=== PATIENT | male | born 1970 | race Caucasian/White ===

== ENCOUNTER 2017-10-17 17:26 | Emergency (ER) | payer OTHER ==
[2017-10-17 17:39] VITALS: RESP 18
[2017-10-17] MEDS ORDERED: NS 1,000 ML IV ONE (17:43)
[2017-10-17] MEDS ORDERED: ONDANSETRON 4 MG/2 ML VIAL IVP ONE (17:43)
[2017-10-17] MEDS ORDERED: HYDROmorphONE/DILAUDID 1 MG/ML INJ IVP ONE ×2 (17:43→19:56)
--- NOTE | 2017-10-17 17:46 | EDPHY ---
H & P Stated Complaint: Sudden onset RLQ pain while eating hamburger Source: Patient Exam Limitations: Language barrier - Personal History Current Tetanus Diphtheria and Acellular Pertussis (TDAP): Yes - Medical/Surgical History Hx Asthma: No Hx Chronic Respiratory Disease: No Hx Diabetes: No Hx Cardiac Disease: No Hx Renal Disease: No Hx Cirrhosis: No Hx Alcoholism: No Hx HIV/AIDS: No Hx Splenectomy or Spleen Trauma: No Other PMH: Chron's disease-, L5-L6 fusion-2015, choleycystectome, appedicitis, colon obstruction-1999. Deaf - Family History Significant Family History: No pertinent family hx - Social History Smoking Status: Never smoked Alcohol Use: Sober Drug Use: None Time Seen by Provider: 10/17/17 17:27 HPI/ROS: CHIEF COMPLAINT: Left lower quadrant pain HISTORY OF PRESENT ILLNESS: Patient is a 47-year-old deaf man with history of Crohn's disease and partial colectomy, appendectomy and cholecystectomy and small-bowel obstruction who comes to the emergency department complaining of left lower quadrant pain that began about an hour ago. He states that this happened about half an hour after he ate a raw hamburger accidentally. He is concerned that that is causing his Crohn's to flare. He has had diarrhea that is watery nonbloody. No vomiting. No fever. He has had kidney stones as well as diverticulitis in the past and states this could feel like either. He does admit to some CVA pain as well. No testicular or groin pain. Our discussion was had through writing. Project Assistant is on their way. He states that he is allergic to IV contrast that give some anaphylaxis and that he is also allergic to prednisone. REVIEW OF SYSTEMS: Constitutional: denies: chills, fever, recent illness, recent injury EENTM: denies: blurred vision, double vision, nose congestion Respiratory: denies: cough, shortness of breath Cardiac: denies: chest pain, irregular heart rate, lightheadedness, palpitations Gastrointestinal/Abdominal: See HPI Genitourinary: denies: dysuria, frequency, hematuria, pain Musculoskeletal: denies: joint pain, muscle pain Skin: denies: lesions, rash, jaundice, bruising Neurological: denies: headache, numbness, paresthesia, tingling, dizziness, weakness Hematologic/Lymphatic: denies: blood clots, easy bleeding, easy bruising Immunologic/allergic: denies: HIV/AIDS, transplant EXAM: GENERAL: Well-appearing, well-nourished and in no acute distress. HEAD: Atraumatic, normocephalic. EYES: Pupils equal round and reactive to light, extraocular movements intact, sclera anicteric, conjunctiva are normal. ENT: TMs normal, nares patent, oropharynx clear without exudates. Moist mucous membranes. NECK: Normal range of motion, supple without lymphadenopathy or JVD. LUNGS: Breath sounds clear to auscultation bilaterally and equal. No wheezes rales or rhonchi. HEART: Regular rate and rhythm without murmurs, rubs or gallops. ABDOMEN: Left lower quadrant tenderness, normal testicular exam, no palpable hernia. BACK: No CVA tenderness, no spinal tenderness, step-offs or deformities EXTREMITIES: Normal range of motion, no pitting or edema. No clubbing or cyanosis. NEUROLOGICAL: Cranial nerves II through XII grossly intact. Normal speech, normal gait. 5/5 strength, normal movement in all extremities, normal sensation PSYCH: Normal mood, normal affect. SKIN: Warm, dry, normal turgor, no visible rashes or lesions. (Davide Hicks) Constitutional: Initial Vital Signs Temperature (C) 36.9 C 10/17/17 17:20 Heart Rate 89 10/17/17 17:20 Respiratory Rate 18 10/17/17 17:20 Blood Pressure 135/101 H 10/17/17 17:20 O2 Sat (%) 93 10/17/17 17:20 O2 Delivery Mode Room Air Allergies/Adverse Reactions: haloperidol [From Haldol] Allergy (Verified 10/17/17 17:36) ketamine Allergy (Verified 10/17/17 17:36) NSAIDS (Non-Steroidal Anti-Inflamma Allergy (Verified 10/17/17 17:36) prednisone Allergy (Verified 10/17/17 17:36) sulfamethoxazole [From Bactrim] Allergy (Verified 10/17/17 17:36) RASH/ trimethoprim [From Bactrim] Allergy (Verified 10/17/17 17:36) RASH/ Home Medications: Medication Instructions Recorded Azithromycin 250 mg PO DAILY #4 tablet 10/17/17 Anum 10/17/17 Tamsulosin HCl [Flomax] 0.4 mg PO DAILY #10 cap 10/17/17 oxyCODONE/APAP 5/325 [Percocet 1 - 2 tab PO Q4H PRN #10 tab 10/17/17 5/325] oxyCODONE/APAP 5/325 [Percocet 1 - 2 tab PO Q6H PRN #12 tab 10/18/17 5/325 (*)] Medical Decision Making - Diagnostics Imaging: Discussed imaging studies w/ call center director Radiologist ED Course/Re-evaluation: 9:20 p.m. I had a long discussion with the patient through the bilingual manager. He is asking for some pain medication for when the next stone comes down. We also discussed the small pneumonia seen on CT scan. He states that he is currently asymptomatic but would like to start antibiotics because he has frequent episodes of pneumonia. Will refer him to Urology. (Davide Hicks) Differential Diagnosis: Partial list of the Differential diagnosis considered include but were not limited to; kidney stone, diverticulitis, pneumonia and although unlikely based on the history and physical exam, I also considered food poisoning, rupture. I discussed these differential diagnoses and the plan with the patient as well as the usual and expected course. The patient understands that the diagnosis is provisional and that in medicine we are not always correct and that further workup is often warranted. Usual and customary warnings were given. All of the patient's questions were answered. The patient was instructed to return to the emergency department should the symptoms at all worsen or return, otherwise to followup with the physician as we discussed. ( Davide Hicks) Other Provider: Patient presents to the emergency department this morning. A prescription provided by Dr. Hicks for oxycodone had not been sign. I provided the patient a new prescription for percocet 5/325 mg #12. (Mary Grace Kidd) - Data Points Laboratory Results: Laboratory Results 10/17/17 17:28 10/17/17 17:28 Medications Given: Discontinued Medications Azithromycin (Zithromax) 500 mg PO EDNOW ONE PRN Reason: Protocol Stop: 10/17/17 21:13 Last Admin: 10/17/17 21:32 Dose: 500 mg Hydromorphone HCl (Dilaudid) 1 mg IVP EDNOW ONE Stop: 10/17/17 17:44 Last Admin: 10/17/17 17:52 Dose: 1 mg Hydromorphone HCl (Dilaudid) 1 mg IVP EDNOW ONE Stop: 10/17/17 20:16 Last Admin: 10/17/17 20:03 Dose: 1 mg Sodium Chloride (Ns) 1,000 mls @ 0 mls/hr IV EDNOW ONE; Wide Open PRN Reason: Protocol Stop: 10/17/17 17:44 Last Admin: 10/17/17 17:54 Dose: 1,000 mls Lidocaine HCl 150 mg/ Sodium (Chloride) 115 mls @ 600 mls/hr IV EDNOW ONE Stop: 10/17/17 19:00 Last Admin: 10/17/17 19:37 Dose: 115 mls Ondansetron HCl (Zofran) 4 mg IVP EDNOW ONE Stop: 10/17/17 17:44 Last Admin: 10/17/17 17:54 Dose: 4 mg Departure - Departure Disposition: Home, Routine, Self-Care Clinical Impression: Renal colic on left side Pneumonia Qualifiers: Pneumonia type: due to unspecified organism Laterality: left Lung location: lower lobe of lung Qualified Code(s): J18.1 - Lobar pneumonia, unspecified organism Condition: Fair Instructions: Kidney Stones (ED), Pneumonia (ED) Referrals: Patient,NotPresent [Unknown] - As per Instructions Alex Angel MD [Medical Doctor] - As per Instructions Marvin Nuñez [Respiratory Therapist] - 5-7 days, call for appt. Prescriptions: Azithromycin 250 mg PO DAILY #4 tablet oxyCODONE/APAP 5/325 [Percocet 5/325] 1 - 2 tab PO Q4H PRN #10 tab PRN Reason: Pain, Severe oxyCODONE/APAP 5/325 [Percocet 5/325 (*)] 1 - 2 tab PO Q6H PRN #12 tab PRN Reason: Pain Tamsulosin HCl [Flomax] 0.4 mg PO DAILY #10 cap
[2017-10-17 17:54] LABS: PLATELET COUNT 216 10^3/uL (150-400)
[2017-10-17 18:07] LABS: INR 0.99 (0.83-1.16); PROTIME(PATIENT) 13.3 SEC (12.0-15.0)
[2017-10-17] MEDS ORDERED: LIDOCAINE 1% 150 MG in NS 100 ML IV ONE (18:49)
[2017-10-17] MEDS ORDERED: HYDROmorphONE/DILAUDID 2 MG/ML INJ ONE (19:58)
[2017-10-17] MEDS ORDERED: HYDROmorphONE/DILAUDID 2 MG/ML INJ IVP ONE (20:15)
[2017-10-17] MEDS ORDERED: AZITHROMYCIN 250 MG TAB PO ONE (21:12)
[2017-10-17 21:52] VITALS: BP 118/85; PULSE 82; TEMP 97.9; O2SAT 93
== END 2017-10-17 21:52 | disposition home or self-care (01) ==
LOC: EDUNIT#
DX: N23 Unspecified renal colic (principal); J18.1 Lobar pneumonia, unspecified organism; E86.9 Volume depletion, unspecified; Z87.19 Personal history of other diseases of the digestive system; Z90.49 Acquired absence of other specified parts of digestive tract
CPT/HCPCS: 74176; 96361; 96365; 96375; 96376; 99285; J1170; J2405